=== PATIENT | female | born 1990 | race Caucasian/White ===

== ENCOUNTER 2019-01-23 02:17 | Inpatient (IN) | payer OTHER ==
[~2019-01-23] VITALS: Ht 152.4 cm; Wt 55.1 kg
[~2019-01-23 02:17] MED LIST: NORE-40 PO
--- NOTE | 2019-01-23 02:35 | NUR ---
roberto carlos. report from [facility]. transferred from [facility]. pt c/o right sided abd/flank pain since Mon. pt has hx of kidney stone and pt states stone passed on last Sat. pt had n/v before medications. pt medicated(normal saline/zofran/rocephin/toradol/morphine) at [facility] [employer]. pt denies n/v/d at this time. pt's aox4. resps even and unlabored. bp/spo2 monitors in place. call light within reach. awaiting [facility] assessment at this time.
[2019-01-23] MEDS ORDERED: LEVE500T53 PO (02:44)
[2019-01-23] MEDS ORDERED: IBUP-1223 PO (02:49)
--- NOTE | 2019-01-23 03:11 | NUR ---
report given to kerry bassett. all questions answered.
[2019-01-23] MEDS ORDERED: IBUPROFEN 800 MG TABLET ONE (04:05)
--- NOTE | 2019-01-23 04:08 | NUR ---
pt in [facility] now.
--- NOTE | 2019-01-23 04:08 | NUR ---
pt has fever (101.3) at this time. [facility] notified. pt medicated per [facility] for fever. pt tolerated well. pt's aox4. resps even and unlabored.
--- NOTE | 2019-01-23 04:25 | NUR ---
pt back to room from [facility] now.
[2019-01-23] MEDS ORDERED: IBUPROFEN 800 MG TABLET PO ONE (04:30)
--- NOTE | 2019-01-23 05:02 | NUR ---
PT PROVIDED SOME APPLE JUICE AT THIS TIME. PT RESTING IN [facility]. RESPS EVEN AND UNLABORED. PT DENIES ANY NEEDS/CONCERNS AT THIS TIME.
--- NOTE | 2019-01-23 05:45 | NUR ---
REPORT GIVEN TO VIN HAWK. ALL QUESTIONS ANSWERED.
[2019-01-23] MEDS: morphine SULFATE 10 MG/ML, 1ML IVPush PRN ×5 (06:25→20:01)
[2019-01-23] MEDS: SODIUM CHLORIDE 0.9% 1,000 ML IV SCH ×2 (06:40→11:33)
[2019-01-23] MEDS ORDERED: LEVETIRACETAM 500 MG in SODIUM CHLORIDE 0.9% 100 ML IV SCH (09:00)
[2019-01-23 09:58] VITALS: BP 104/73
[2019-01-23 11:57] LABS: MEAN CORPUSCULAR HEMOGLOBIN 29.6 pg (27.0-34.8); MEAN CORPUSCULAR HGB CONC 33.5 g/dL (32.4-35.8); MEAN CORPUSCULAR VOLUME 88.4 fL (80-100); MEAN PLATELET VOLUME 7.7 fL (7.4-10.4); PLATELET COUNT 282 x10^3/uL (130-400); RED BLOOD COUNT 3.93 x10^6/uL (3.82-5.3); RED CELL DISTRIBUTION WIDTH 16.3 % (9.6-15.2)
[2019-01-23 12:09] LABS: ANION GAP 6 mmol/L (5-15); CALCIUM 8.2 mg/dL (8.5-10.1); CHLORIDE 102 mmol/L (98-107); CREATININE 1.17 mg/dL (0.55-1.02)
[2019-01-23 12:46] VITALS: BP 133/76
[2019-01-23 12:52] LABS: MICROSCOPIC AUTO
[2019-01-23 12:54] LABS: CULTURE INDICATED? YES
[2019-01-23 12:57] LABS: BASOPHILS # (AUTO) 0.02 x10^3/uL (0-0.1); BASOPHILS % (AUTO) 0 % (0-1); EOSINOPHILS # (AUTO) 0.08 x10^3/uL (0-0.4); EOSINOPHILS % (AUTO) 1 % (1-7); LYMPHOCYTES # (AUTO) 1.11 x10^3/uL (1-3.4); LYMPHOCYTES % (AUTO) 8 % (22-44); MD SCAN; MONOCYTES # (AUTO) 1.14 x10^3/uL (0.2-0.8); MONOCYTES % (AUTO) 9 % (2-9); NEUTROPHILS # (AUTO) 11.04 x10^3/uL (1.8-6.8); NEUTROPHILS % (AUTO) 82 % (42-75)
[2019-01-23] MEDS ORDERED: PHARMACY MAY ADJ FOR RENAL FX MC PRN (14:00)
[2019-01-23] MEDS ORDERED: ONDANSETRON 2MG/ML, 2ML IVPush PRN (14:00)
[2019-01-23] MEDS ORDERED: BISACODYL 10 MG SUPP PR PRN (14:00)
[2019-01-23] MEDS ORDERED: hydrALAzine 20 MG/ML, 1ML IVPush PRN (14:00)
[2019-01-23] MEDS ORDERED: POTASSIUM CHLORIDE 20 MEQ TAB.ER.PRT PO ONE (14:00)
[2019-01-23] MEDS ORDERED: POLYETHYLENE GLYCOL 17 GM PACKET PO PRN (14:00)
[2019-01-23] MEDS ORDERED: ONDANSETRON ODT 4 MG PO PRN (14:00)
[2019-01-23] MEDS ORDERED: MORPHINE SULFATE 4 MG/ML, 1ML ONE (15:05)
[2019-01-23] MEDS: NS + 20MEQ KCL 1,000 ML IV SCH ×2 (15:45→23:45)
[2019-01-23 15:52] VITALS: BP 102/67
[2019-01-23 19:18] VITALS: BP 94/62
[2019-01-23] MEDS: DOCUSATE 100 MG CAPSULE PO SCH (20:01)
[2019-01-23] MEDS: CEFTRIAXONE PMX 1GM/50ML 50 ML IV SCH (21:04)
[2019-01-24 00:17] VITALS: BP 104/74
[2019-01-24] MEDS: morphine SULFATE 10 MG/ML, 1ML IVPush PRN ×7 (00:58→22:27)
[2019-01-24 05:10] LABS: BASOPHILS # (AUTO) 0.02 x10^3/uL (0-0.1); BASOPHILS % (AUTO) 0 % (0-1); EOSINOPHILS # (AUTO) 0.09 x10^3/uL (0-0.4); EOSINOPHILS % (AUTO) 1 % (1-7); LYMPHOCYTES # (AUTO) 1.79 x10^3/uL (1-3.4); LYMPHOCYTES % (AUTO) 15 % (22-44); MD NO; MEAN CORPUSCULAR HEMOGLOBIN 30.6 pg (27.0-34.8); MEAN CORPUSCULAR HGB CONC 34.4 g/dL (32.4-35.8); MEAN CORPUSCULAR VOLUME 88.8 fL (80-100); MEAN PLATELET VOLUME 7.5 fL (7.4-10.4); MONOCYTES # (AUTO) 1.42 x10^3/uL (0.2-0.8); MONOCYTES % (AUTO) 12 % (2-9); NEUTROPHILS # (AUTO) 8.61 x10^3/uL (1.8-6.8); NEUTROPHILS % (AUTO) 72 % (42-75); PLATELET COUNT 301 x10^3/uL (130-400); RED BLOOD COUNT 3.36 x10^6/uL (3.82-5.3); RED CELL DISTRIBUTION WIDTH 16.3 % (9.6-15.2)
[2019-01-24 05:17] LABS: ALBUMIN 1.6 g/dL (3.4-5.0); ANION GAP 4 mmol/L (5-15); CALCIUM 7.5 mg/dL (8.5-10.1); CHLORIDE 105 mmol/L (98-107)
[2019-01-24 05:22] LABS: ALANINE AMINOTRANSFERASE 95 U/L (12-78); ALKALINE PHOSPHATASE 154 U/L (45-117); BILIRUBIN,TOTAL 0.5 mg/dL (0.2-1.0); CREATININE 0.93 mg/dL (0.55-1.02); TOTAL PROTEIN 5.2 g/dL (6.4-8.2)
[2019-01-24] MEDS ORDERED: SODIUM PHOSPHATE 20 MMOL in SODIUM CHLORIDE 0.9% 500 ML IV ONE (07:30)
[2019-01-24] MEDS: LEVETIRACETAM 500 MG TABLET PO SCH (07:58)
[2019-01-24] MEDS: DOCUSATE 100 MG CAPSULE PO SCH ×2 (07:58→21:00)
[2019-01-24 08:50] VITALS: BP 109/76
[2019-01-24] MEDS: CEFTRIAXONE PMX 1GM/50ML 50 ML IV SCH ×2 (09:08→21:53)
[2019-01-24] MEDS: NS + 20MEQ KCL 1,000 ML IV SCH ×2 (10:24→21:53)
[2019-01-24 13:00] VITALS: BP 105/72
[2019-01-24 18:47] VITALS: BP 109/76
[2019-01-25 01:03] VITALS: BP 109/75
[2019-01-25] MEDS: morphine SULFATE 10 MG/ML, 1ML IVPush PRN ×3 (02:27→08:45)
[2019-01-25] MEDS: METHOCARBAMOL 500 MG TABLET PO PRN ×2 (04:24→17:49)
[2019-01-25] MEDS: NS + 20MEQ KCL 1,000 ML IV SCH ×3 (05:15→21:25)
[2019-01-25 05:18] LABS: MEAN CORPUSCULAR HEMOGLOBIN 30.8 pg (27.0-34.8); MEAN CORPUSCULAR HGB CONC 34.5 g/dL (32.4-35.8); MEAN CORPUSCULAR VOLUME 89.3 fL (80-100); MEAN PLATELET VOLUME 7.7 fL (7.4-10.4); PLATELET COUNT 409 x10^3/uL (130-400); RED BLOOD COUNT 3.37 x10^6/uL (3.82-5.3); RED CELL DISTRIBUTION WIDTH 16.6 % (9.6-15.2)
[2019-01-25 05:28] LABS: CHLORIDE 104 mmol/L (98-107)
[2019-01-25 05:34] LABS: ALANINE AMINOTRANSFERASE 77 U/L (12-78); ALBUMIN 1.8 g/dL (3.4-5.0); ALKALINE PHOSPHATASE 148 U/L (45-117); ANION GAP 5 mmol/L (5-15); BILIRUBIN,TOTAL 0.2 mg/dL (0.2-1.0); CALCIUM 8.2 mg/dL (8.5-10.1); CREATININE 0.79 mg/dL (0.55-1.02); TOTAL PROTEIN 5.9 g/dL (6.4-8.2)
[2019-01-25 06:26] LABS: BASOPHILS # (AUTO) 0.06 x10^3/uL (0-0.1); BASOPHILS % (AUTO) 0 % (0-1); EOSINOPHILS # (AUTO) 0.08 x10^3/uL (0-0.4); EOSINOPHILS % (AUTO) 1 % (1-7); LYMPHOCYTES # (AUTO) 2.52 x10^3/uL (1-3.4); LYMPHOCYTES % (AUTO) 17 % (22-44); MD SCAN; MONOCYTES # (AUTO) 1.29 x10^3/uL (0.2-0.8); MONOCYTES % (AUTO) 9 % (2-9); NEUTROPHILS # (AUTO) 10.72 x10^3/uL (1.8-6.8); NEUTROPHILS % (AUTO) 73 % (42-75)
[2019-01-25 07:04] VITALS: BP 102/69
[2019-01-25] MEDS: CEFTRIAXONE PMX 1GM/50ML 50 ML IV SCH ×2 (08:46→21:24)
[2019-01-25] MEDS: LEVETIRACETAM 500 MG TABLET PO SCH (08:46)
[2019-01-25] MEDS: DOCUSATE 100 MG CAPSULE PO SCH ×2 (08:46→21:00)
[2019-01-25] MEDS ORDERED: GUAIFENESIN/DM 200-20MG, 10ML UDC PO PRN (12:00)
[2019-01-25] MEDS: PHENAZOPYRIDINE 200 MG TABLET PO PRN ×2 (12:47→21:24)
[2019-01-25] MEDS: OXYcodone IR 5MG TABLET PO PRN ×3 (12:55→21:25)
[2019-01-25 14:33] VITALS: BP 101/70
[2019-01-25 18:28] VITALS: BP 98/71
[2019-01-26 00:37] VITALS: BP 111/78
[2019-01-26] MEDS: OXYcodone IR 5MG TABLET PO PRN ×4 (01:48→19:02)
[2019-01-26] MEDS: METHOCARBAMOL 500 MG TABLET PO PRN ×2 (04:18→17:37)
[2019-01-26 04:57] LABS: MEAN CORPUSCULAR HEMOGLOBIN 30.5 pg (27.0-34.8); MEAN CORPUSCULAR HGB CONC 34.2 g/dL (32.4-35.8); MEAN CORPUSCULAR VOLUME 89.3 fL (80-100); MEAN PLATELET VOLUME 7.6 fL (7.4-10.4); PLATELET COUNT 533 x10^3/uL (130-400); RED BLOOD COUNT 3.37 x10^6/uL (3.82-5.3); RED CELL DISTRIBUTION WIDTH 16.4 % (9.6-15.2)
[2019-01-26 05:09] LABS: CHLORIDE 105 mmol/L (98-107)
[2019-01-26 05:21] LABS: ALANINE AMINOTRANSFERASE 60 U/L (12-78); ALBUMIN 1.9 g/dL (3.4-5.0); ALKALINE PHOSPHATASE 123 U/L (45-117); ANION GAP 5 mmol/L (5-15); BILIRUBIN,TOTAL 0.2 mg/dL (0.2-1.0); CALCIUM 8.3 mg/dL (8.5-10.1); CREATININE 0.88 mg/dL (0.55-1.02); TOTAL PROTEIN 6.1 g/dL (6.4-8.2)
[2019-01-26 05:32] LABS: MD YES
[2019-01-26 05:33] LABS: BAND#(MANUAL) 0.76 x10^3/uL; BANDS%(MANUAL) 5 % (0-7); EOS#(MANUAL) 0.15 x10^3/uL (0.0-0.4); EOS% (MANUAL) 1 % (1-7); LYMPH#(MANUAL) 4.38 x10^3/uL (1-3.4); LYMPHS% (MANUAL) 29 % (22-44); METAMYELOCYTES# (MANUAL) 0.15 x10^3/uL (0-0); METAMYELOCYTES% (MANUAL) 1 % (0-1); MONOS#(MANUAL) 1.06 x10^3/uL (0.3-2.7); MONOS% (MANUAL) 7 % (2-9); MYELOCYTES# (MANUAL) 0.15 x10^3/uL (0-0); MYELOCYTES% (MANUAL) 1 % (0-0); SEG#(MANUAL) 8.46 x10^3/uL (1.8-6.8); SEGS% (MANUAL) 56 % (42-75)
[2019-01-26 05:35] LABS: <PLATELET ESTIMATE> INCREASED; <PLT MORPHOLOGY> NORMAL PLT MORPH; <RBC MORPHOLOGY> NORMAL
[2019-01-26] MEDS: NS + 20MEQ KCL 1,000 ML IV SCH (06:15)
[2019-01-26] MEDS: PHENAZOPYRIDINE 200 MG TABLET PO PRN ×2 (06:17→17:37)
[2019-01-26 06:30] VITALS: BP 113/78
[2019-01-26] MEDS: CEFTRIAXONE PMX 1GM/50ML 50 ML IV SCH ×2 (08:21→20:24)
[2019-01-26] MEDS: DOCUSATE 100 MG CAPSULE PO SCH ×2 (08:22→20:24)
[2019-01-26] MEDS: LEVETIRACETAM 500 MG TABLET PO SCH (08:22)
[2019-01-26 13:43] LABS: MICROSCOPIC AUTO
[2019-01-26 13:45] LABS: CULTURE INDICATED? YES
[2019-01-26 13:53] LABS: AMPHETAMINE SCREEN, URINE Negative (Negative); BARBITURATE SCREEN, URINE Negative (Negative); BENZODIAZEPINE SCREEN, URINE Negative (Negative); CANNABINOID SCREEN, URINE Negative (Negative); COCAINE SCREEN, URINE Negative (Negative); METHADONE SCREEN, URINE Positive (Negative); OPIATE SCREEN, URINE Positive (Negative)
[2019-01-26 14:09] VITALS: BP 100/63
[2019-01-26 14:26] LABS: HCT (SEDRATE) 31.3 % (34.6-47.8)
[2019-01-26 18:34] VITALS: BP 100/68
[2019-01-27 00:59] VITALS: BP 95/67
[2019-01-27] MEDS: METHOCARBAMOL 500 MG TABLET PO PRN ×2 (01:32→16:08)
[2019-01-27] MEDS: OXYcodone IR 5MG TABLET PO PRN ×4 (01:32→21:36)
[2019-01-27 06:17] LABS: MEAN CORPUSCULAR HEMOGLOBIN 30.6 pg (27.0-34.8); MEAN CORPUSCULAR HGB CONC 34.1 g/dL (32.4-35.8); MEAN CORPUSCULAR VOLUME 89.9 fL (80-100); MEAN PLATELET VOLUME 7.6 fL (7.4-10.4); PLATELET COUNT 852 x10^3/uL (130-400); RED BLOOD COUNT 3.85 x10^6/uL (3.82-5.3)
[2019-01-27 06:27] LABS: ALBUMIN 2.3 g/dL (3.4-5.0); ANION GAP 6 mmol/L (5-15); CALCIUM 8.9 mg/dL (8.5-10.1); CHLORIDE 99 mmol/L (98-107)
[2019-01-27 06:31] LABS: ALANINE AMINOTRANSFERASE 59 U/L (12-78); ALKALINE PHOSPHATASE 123 U/L (45-117); BILIRUBIN,TOTAL 0.3 mg/dL (0.2-1.0); CREATININE 0.97 mg/dL (0.55-1.02); TOTAL PROTEIN 7.1 g/dL (6.4-8.2)
[2019-01-27 06:38] LABS: MD YES
[2019-01-27 06:41] LABS: <PLATELET ESTIMATE> INCREASED; <PLT MORPHOLOGY> NORMAL PLT MORPH; <RBC MORPHOLOGY> NORMAL; BAND#(MANUAL) 1.62 x10^3/uL; BANDS%(MANUAL) 8 % (0-7); EOS% (MANUAL) 1 % (1-7); LYMPH#(MANUAL) 5.25 x10^3/uL (1-3.4); LYMPHS% (MANUAL) 26 % (22-44); METAMYELOCYTES% (MANUAL) 2 % (0-1); MONOS#(MANUAL) 1.01 x10^3/uL (0.3-2.7); MONOS% (MANUAL) 5 % (2-9); MYELOCYTES% (MANUAL) 1 % (0-0); SEG#(MANUAL) 11.51 x10^3/uL (1.8-6.8); SEGS% (MANUAL) 57 % (42-75); TOXIC GRAN 1+
[2019-01-27 07:33] VITALS: BP 90/60
[2019-01-27] MEDS: DOCUSATE 100 MG CAPSULE PO SCH ×2 (09:00→19:26)
[2019-01-27] MEDS: MEROPENEM 1 GM in SODIUM CHLORIDE 0.9% 100 ML IV SCH ×2 (09:10→17:26)
[2019-01-27] MEDS: ENOXAPARIN 40 MG/0.4 ML SQ SCH (09:11)
[2019-01-27] MEDS: LEVETIRACETAM 500 MG TABLET PO SCH (09:11)
[2019-01-27] MEDS: PHENAZOPYRIDINE 200 MG TABLET PO PRN ×2 (09:27→19:26)
[2019-01-27 12:23] VITALS: BP 93/59
[2019-01-27 19:24] VITALS: BP 87/59
[2019-01-28 01:05] VITALS: BP 87/58
[2019-01-28] MEDS: MEROPENEM 1 GM in SODIUM CHLORIDE 0.9% 100 ML IV SCH ×3 (01:07→17:27)
[2019-01-28] MEDS: PHENAZOPYRIDINE 200 MG TABLET PO PRN ×2 (03:49→10:07)
[2019-01-28] MEDS: OXYcodone IR 5MG TABLET PO PRN ×3 (03:49→17:27)
[2019-01-28 04:19] LABS: MEAN CORPUSCULAR HEMOGLOBIN 30.3 pg (27.0-34.8); MEAN CORPUSCULAR HGB CONC 33.6 g/dL (32.4-35.8); MEAN CORPUSCULAR VOLUME 90.1 fL (80-100); MEAN PLATELET VOLUME 7.1 fL (7.4-10.4); RED BLOOD COUNT 3.68 x10^6/uL (3.82-5.3); RED CELL DISTRIBUTION WIDTH 15.7 % (9.6-15.2)
[2019-01-28 04:24] LABS: PLATELET COUNT 1058 x10^3/uL (130-400)
[2019-01-28 04:30] LABS: ALANINE AMINOTRANSFERASE 57 U/L (12-78); ALBUMIN 2.4 g/dL (3.4-5.0); ANION GAP 6 mmol/L (5-15); CALCIUM 8.8 mg/dL (8.5-10.1); CHLORIDE 100 mmol/L (98-107)
[2019-01-28 04:33] LABS: ALKALINE PHOSPHATASE 120 U/L (45-117); BILIRUBIN,TOTAL 0.3 mg/dL (0.2-1.0); CREATININE 0.84 mg/dL (0.55-1.02)
[2019-01-28 04:56] LABS: MD YES
[2019-01-28 04:59] LABS: BAND#(MANUAL) 0.13 x10^3/uL; BANDS%(MANUAL) 1 % (0-7); EOS#(MANUAL) 0.27 x10^3/uL (0.0-0.4); EOS% (MANUAL) 2 % (1-7); LYMPH#(MANUAL) 3.06 x10^3/uL (1-3.4); LYMPHS% (MANUAL) 23 % (22-44); MONOS#(MANUAL) 0.67 x10^3/uL (0.3-2.7); MONOS% (MANUAL) 5 % (2-9); MYELOCYTES% (MANUAL) 3 % (0-0); SEG#(MANUAL) 8.78 x10^3/uL (1.8-6.8); SEGS% (MANUAL) 66 % (42-75)
[2019-01-28 05:00] LABS: ANISOCYTOSIS 1+; TOXIC GRAN 1+
[2019-01-28 05:01] LABS: <PLATELET ESTIMATE> INCREASED; <PLT MORPHOLOGY> NORMAL PLT MORPH
[2019-01-28 07:47] VITALS: BP 92/60
[2019-01-28] MEDS: ASPIRIN 325 MG TABLET EC PO SCH ×2 (09:00→13:13)
[2019-01-28] MEDS: DOCUSATE 100 MG CAPSULE PO SCH ×2 (09:00→21:00)
[2019-01-28] MEDS: LEVETIRACETAM 500 MG TABLET PO SCH (09:32)
[2019-01-28] MEDS: ENOXAPARIN 40 MG/0.4 ML SQ SCH (09:33)
[2019-01-28] MEDS: SODIUM CHLORIDE 0.9% 1,000 ML IV SCH ×2 (09:33→17:27)
[2019-01-28 13:20] VITALS: BP 92/59
[2019-01-28 20:20] VITALS: BP 90/58
[2019-01-29] MEDS: OXYcodone IR 5MG TABLET PO PRN ×3 (00:08→16:52)
[2019-01-29] MEDS: PHENAZOPYRIDINE 200 MG TABLET PO PRN ×3 (00:08→16:52)
[2019-01-29] MEDS: SODIUM CHLORIDE 0.9% 1,000 ML IV SCH (00:08)
[2019-01-29] MEDS: MEROPENEM 1 GM in SODIUM CHLORIDE 0.9% 100 ML IV SCH ×3 (00:09→16:58)
[2019-01-29 01:25] VITALS: BP 90/65
[2019-01-29 04:45] LABS: ALANINE AMINOTRANSFERASE 49 U/L (12-78); ALBUMIN 2.1 g/dL (3.4-5.0); ANION GAP 5 mmol/L (5-15); BASOPHILS # (AUTO) 0.04 x10^3/uL (0-0.1); BASOPHILS % (AUTO) 0 % (0-1); CALCIUM 8.1 mg/dL (8.5-10.1); CHLORIDE 108 mmol/L (98-107); CREATININE 0.83 mg/dL (0.55-1.02); EOSINOPHILS # (AUTO) 0.44 x10^3/uL (0-0.4); EOSINOPHILS % (AUTO) 3 % (1-7); LYMPHOCYTES # (AUTO) 2.28 x10^3/uL (1-3.4); LYMPHOCYTES % (AUTO) 18 % (22-44); MD NO; MEAN CORPUSCULAR HEMOGLOBIN 30.4 pg (27.0-34.8); MEAN CORPUSCULAR HGB CONC 33.7 g/dL (32.4-35.8); MEAN CORPUSCULAR VOLUME 90.3 fL (80-100); MEAN PLATELET VOLUME 7.1 fL (7.4-10.4); MONOCYTES # (AUTO) 0.63 x10^3/uL (0.2-0.8); MONOCYTES % (AUTO) 5 % (2-9); NEUTROPHILS % (AUTO) 74 % (42-75); PLATELET COUNT 968 x10^3/uL (130-400); RED BLOOD COUNT 3.02 x10^6/uL (3.82-5.3); RED CELL DISTRIBUTION WIDTH 15.6 % (9.6-15.2)
[2019-01-29 04:47] LABS: ALKALINE PHOSPHATASE 101 U/L (45-117); BILIRUBIN,TOTAL 0.1 mg/dL (0.2-1.0)
[2019-01-29 08:00] VITALS: BP 92/56
[2019-01-29] MEDS: LEVETIRACETAM 500 MG TABLET PO SCH (08:41)
[2019-01-29] MEDS: DOCUSATE 100 MG CAPSULE PO SCH ×2 (08:41→21:00)
[2019-01-29] MEDS: ENOXAPARIN 40 MG/0.4 ML SQ SCH (08:41)
[2019-01-29 14:18] VITALS: BP 103/67
[2019-01-29 20:36] VITALS: BP 90/60
[2019-01-30] MEDS: OXYcodone IR 5MG TABLET PO PRN ×4 (00:28→21:25)
[2019-01-30] MEDS: PHENAZOPYRIDINE 200 MG TABLET PO PRN ×2 (00:28→09:11)
[2019-01-30] MEDS: MEROPENEM 1 GM in SODIUM CHLORIDE 0.9% 100 ML IV SCH ×4 (00:28→20:39)
[2019-01-30 01:11] VITALS: BP 97/64
[2019-01-30 03:41] LABS: MEAN CORPUSCULAR HEMOGLOBIN 30.1 pg (27.0-34.8); MEAN CORPUSCULAR HGB CONC 33.6 g/dL (32.4-35.8); MEAN CORPUSCULAR VOLUME 89.7 fL (80-100); MEAN PLATELET VOLUME 7.2 fL (7.4-10.4); RED BLOOD COUNT 3.27 x10^6/uL (3.82-5.3); RED CELL DISTRIBUTION WIDTH 15.7 % (9.6-15.2)
[2019-01-30 03:50] LABS: PLATELET COUNT 1194 x10^3/uL (130-400)
[2019-01-30 04:07] LABS: BASOPHILS # (AUTO) 0.04 x10^3/uL (0-0.1); BASOPHILS % (AUTO) 0 % (0-1); EOSINOPHILS # (AUTO) 0.24 x10^3/uL (0-0.4); EOSINOPHILS % (AUTO) 2 % (1-7); LYMPHOCYTES # (AUTO) 2.36 x10^3/uL (1-3.4); LYMPHOCYTES % (AUTO) 20 % (22-44); MD SCAN; MONOCYTES # (AUTO) 0.45 x10^3/uL (0.2-0.8); MONOCYTES % (AUTO) 4 % (2-9); NEUTROPHILS # (AUTO) 8.89 x10^3/uL (1.8-6.8); NEUTROPHILS % (AUTO) 74 % (42-75)
[2019-01-30 07:20] VITALS: BP 90/50
[2019-01-30] MEDS: ASPIRIN 325 MG TABLET EC PO SCH (08:59)
[2019-01-30] MEDS: LEVETIRACETAM 500 MG TABLET PO SCH (08:59)
[2019-01-30] MEDS: DOCUSATE 100 MG CAPSULE PO SCH ×2 (08:59→20:39)
[2019-01-30] MEDS: ENOXAPARIN 40 MG/0.4 ML SQ SCH (09:00)
[2019-01-30] MEDS: SODIUM CHLORIDE 0.9% 1,000 ML IV SCH (09:12)
[2019-01-30 13:30] VITALS: BP 94/63
[2019-01-30 19:40] VITALS: BP 92/61
[2019-01-31 02:56] VITALS: BP_SYST 85; BP_SYST 89; BP_DIAS 53; BP_DIAS 59
[2019-01-31] MEDS: MEROPENEM 1 GM in SODIUM CHLORIDE 0.9% 100 ML IV SCH (04:09)
[2019-01-31] MEDS: OXYcodone IR 5MG TABLET PO PRN ×4 (04:17→23:54)
[2019-01-31] MEDS: PHENAZOPYRIDINE 200 MG TABLET PO PRN ×3 (04:17→23:54)
[2019-01-31 04:32] VITALS: BP 95/60
[2019-01-31 04:43] LABS: MEAN CORPUSCULAR HEMOGLOBIN 29.5 pg (27.0-34.8); MEAN CORPUSCULAR HGB CONC 32.7 g/dL (32.4-35.8); MEAN CORPUSCULAR VOLUME 90.1 fL (80-100); MEAN PLATELET VOLUME 7.6 fL (7.4-10.4); RED BLOOD COUNT 2.98 x10^6/uL (3.82-5.3); RED CELL DISTRIBUTION WIDTH 15.3 % (9.6-15.2)
[2019-01-31 04:54] LABS: PLATELET COUNT 1074 x10^3/uL (130-400)
[2019-01-31 06:16] LABS: BASOPHILS # (AUTO) 0.03 x10^3/uL (0-0.1); BASOPHILS % (AUTO) 0 % (0-1); EOSINOPHILS # (AUTO) 0.11 x10^3/uL (0-0.4); EOSINOPHILS % (AUTO) 1 % (1-7); LYMPHOCYTES # (AUTO) 2.01 x10^3/uL (1-3.4); LYMPHOCYTES % (AUTO) 19 % (22-44); MD SCAN; MONOCYTES # (AUTO) 0.53 x10^3/uL (0.2-0.8); MONOCYTES % (AUTO) 5 % (2-9); NEUTROPHILS # (AUTO) 7.97 x10^3/uL (1.8-6.8); NEUTROPHILS % (AUTO) 75 % (42-75)
[2019-01-31 07:25] VITALS: BP 84/55
[2019-01-31 08:42] LABS: FOLATE LEVEL 8.2 ng/mL (3.1-17.5)
[2019-01-31] MEDS: DOCUSATE 100 MG CAPSULE PO SCH ×2 (09:26→21:32)
[2019-01-31] MEDS: ASPIRIN 325 MG TABLET EC PO SCH (09:30)
[2019-01-31] MEDS: ENOXAPARIN 40 MG/0.4 ML SQ SCH (09:30)
[2019-01-31] MEDS: LEVETIRACETAM 500 MG TABLET PO SCH (09:30)
[2019-01-31] MEDS: CEFDINIR 300 MG CAPSULE PO SCH ×2 (09:30→21:31)
[2019-01-31] MEDS: SODIUM CHLORIDE 0.9% 1,000 ML IV SCH (10:18)
[2019-01-31 12:30] VITALS: BP 88/60
[2019-01-31] MEDS: LACTOBACILLUS 1GM/ PACKET PO SCH ×2 (16:03→21:31)
[2019-01-31 18:39] VITALS: BP 94/61
[2019-02-01 01:18] VITALS: BP 101/66
[2019-02-01 04:17] LABS: MEAN CORPUSCULAR HEMOGLOBIN 29.9 pg (27.0-34.8); MEAN CORPUSCULAR HGB CONC 33.2 g/dL (32.4-35.8); MEAN CORPUSCULAR VOLUME 90.1 fL (80-100); MEAN PLATELET VOLUME 7.2 fL (7.4-10.4); RED BLOOD COUNT 3.12 x10^6/uL (3.82-5.3); RED CELL DISTRIBUTION WIDTH 15.3 % (9.6-15.2)
[2019-02-01 06:03] LABS: BASOPHILS # (AUTO) 0.04 x10^3/uL (0-0.1); BASOPHILS % (AUTO) 1 % (0-1); EOSINOPHILS # (AUTO) 0.22 x10^3/uL (0-0.4); EOSINOPHILS % (AUTO) 2 % (1-7); LYMPHOCYTES # (AUTO) 2.91 x10^3/uL (1-3.4); LYMPHOCYTES % (AUTO) 32 % (22-44); MD SCAN; MONOCYTES # (AUTO) 0.63 x10^3/uL (0.2-0.8); MONOCYTES % (AUTO) 7 % (2-9); NEUTROPHILS # (AUTO) 5.41 x10^3/uL (1.8-6.8); NEUTROPHILS % (AUTO) 59 % (42-75)
[2019-02-01 06:04] LABS: PLATELET COUNT 1135 x10^3/uL (130-400)
[2019-02-01 07:20] VITALS: BP 80/50
[2019-02-01] MEDS: DOCUSATE 100 MG CAPSULE PO SCH (09:00)
[2019-02-01] MEDS: LACTOBACILLUS 1GM/ PACKET PO SCH (09:01)
[2019-02-01] MEDS: CEFDINIR 300 MG CAPSULE PO SCH (09:01)
[2019-02-01] MEDS: LEVETIRACETAM 500 MG TABLET PO SCH (09:01)
[2019-02-01] MEDS: ASPIRIN 325 MG TABLET EC PO SCH (09:01)
[2019-02-01] MEDS: ENOXAPARIN 40 MG/0.4 ML SQ SCH (09:02)
[2019-02-01] MEDS: OXYcodone IR 5MG TABLET PO PRN (09:15)
[2019-02-01] MEDS: PHENAZOPYRIDINE 200 MG TABLET PO PRN (09:15)
[2019-02-01 10:32] VITALS: BP 97/64
[2019-02-01] MEDS ORDERED: PHEN-583 PO (10:59)
[2019-02-01] MEDS ORDERED: CEFD300C37 PO (10:59)
[2019-02-01] MEDS ORDERED: ACID1GRA3 PO (10:59)
[2019-02-01] MEDS ORDERED: ASPI-650 PO (10:59)
[2019-02-01] MEDS ORDERED: LIDO700A20 TD (12:09)
[2019-02-01 13:15] VITALS: BP 97/59
== END 2019-02-01 14:01 | disposition home or self-care (01) | DRG 871 ==
LOC: ED 02:45 → EDIP 02:54 → 4WST 06:21 → 3NW 01-27 12:16
PROVIDERS: ADMIT Internal Medicine; ATTEND Internal Medicine
DX: A41.9 Sepsis, unspecified organism (principal); E43 Unspecified severe protein-calorie malnutrition; N17.0 Acute kidney failure with tubular necrosis; N13.6 Pyonephrosis; E83.39 Other disorders of phosphorus metabolism; E87.6 Hypokalemia; M41.9 Scoliosis, unspecified; G40.409 Other generalized epilepsy and epileptic syndromes, not intractable, without status epilepticus; K76.0 Fatty (change of) liver, not elsewhere classified; Z79.899 Other long term (current) drug therapy; Z87.410 Personal history of cervical dysplasia; Z87.442 Personal history of urinary calculi; Z88.0 Allergy status to penicillin; Z88.6 Allergy status to analgesic agent; Z68.23 Body mass index [BMI] 23.0-23.9, adult
CPT/HCPCS: 36415; 71045; 74018; 74176; 76700; 80048; 80053; 80074; 80307; 81001; 82607; 82728; 82746; 83540; 83550; 83735; 84100; 84443; 84703; 85025; 85651; 86140; 87040; 87086; 93306; G0378; J0696; J1650; J1953; J2185; J3480; J2270; J7030; J7040

== ENCOUNTER 2020-03-28 16:28 | Emergency (ER) | payer OTHER ==
[~2020-03-28] VITALS: Ht 152.4 cm; Wt 53.6 kg
[~2020-03-28 16:28] MED LIST changes: +ACID1GRA3 PO; +ASPI-650 PO; +CEFD300C37 PO; +IBUP-1223 PO; +LEVE500T53 PO; +LIDO700A20 TD; +PHEN-583 PO
--- NOTE | 2020-03-28 17:20 | NUR ---
UA SENT UPDATED ON POC VSS ON [facility]
[2020-03-28 17:31] LABS: MICROSCOPIC NOT IND
[2020-03-28 17:57] LABS: BASOPHILS # (AUTO) 0.06 x10^3/uL (0-0.1); BASOPHILS % (AUTO) 0 % (0-1); EOSINOPHILS # (AUTO) 0.15 x10^3/uL (0-0.4); EOSINOPHILS % (AUTO) 1 % (1-7); LYMPHOCYTES # (AUTO) 2.56 x10^3/uL (1-3.4); LYMPHOCYTES % (AUTO) 18 % (22-44); MD NO; MEAN CORPUSCULAR HEMOGLOBIN 28.9 pg (27.0-34.8); MEAN CORPUSCULAR HGB CONC 33.2 g/dL (32.4-35.8); MEAN CORPUSCULAR VOLUME 87.1 fL (80-100); MEAN PLATELET VOLUME 8.1 fL (7.4-10.4); MONOCYTES # (AUTO) 0.98 x10^3/uL (0.2-0.8); MONOCYTES % (AUTO) 7 % (2-9); NEUTROPHILS # (AUTO) 10.51 x10^3/uL (1.8-6.8); NEUTROPHILS % (AUTO) 74 % (42-75); PLATELET COUNT 416 x10^3/uL (130-400); RED BLOOD COUNT 4.46 x10^6/uL (3.82-5.3); RED CELL DISTRIBUTION WIDTH 13.8 % (9.6-15.2)
[2020-03-28] MEDS ORDERED: SODIUM CHLORIDE 0.9% 1,000ML IVBOLUS ONE (18:00)
[2020-03-28] MEDS ORDERED: SODIUM CHLORIDE FLUSH 10ML SYR IVF ONE (18:00)
[2020-03-28 18:08] LABS: ALANINE AMINOTRANSFERASE 15 U/L (12-78); ALBUMIN 3.4 g/dL (3.4-5.0); ANION GAP 6 mmol/L (5-15); CALCIUM 8.7 mg/dL (8.5-10.1); CHLORIDE 104 mmol/L (98-107); CREATININE 0.88 mg/dL (0.55-1.02)
[2020-03-28 18:25] LABS: ALKALINE PHOSPHATASE 72 U/L (45-117); BILIRUBIN,TOTAL 0.2 mg/dL (0.2-1.0); TOTAL PROTEIN 7.3 g/dL (6.4-8.2)
--- NOTE | 2020-03-28 18:29 | NUR ---
1L NS COMPLETE UP TO RESTROOM-STILL VERY DIZZY-ORTHOS NEGATIVE
--- NOTE | 2020-03-28 18:31 | NUR ---
[facility] CALLED TO EXPEDITE EXAM
--- NOTE | 2020-03-28 18:52 | NUR ---
REPORT GIVEN TO NENA HAWK.
--- NOTE | 2020-03-28 18:54 | NUR ---
PT TO [facility].
--- NOTE | 2020-03-28 19:14 | NUR ---
PT RETURNED FROM [facility]. PT RESTING ON [employer] W/ CALL LIGHT IN REACH. RESP EVEN AND UNLABORED, VIANNEY. AWAITING RESULTS.
[2020-03-28 19:40] VITALS: BP 93/66
== END 2020-03-28 20:08 | disposition home or self-care (01) ==
LOC: ED 18:15
DX: O26.891 Other specified pregnancy related conditions, first trimester (principal); O99.331 Smoking (tobacco) complicating pregnancy, first trimester; R10.84 Generalized abdominal pain; R42 Dizziness and giddiness; F17.200 Nicotine dependence, unspecified, uncomplicated; Z3A.11 11 weeks gestation of pregnancy
CPT/HCPCS: 36415; 76801; 80053; 81003; 84702; 85025; 93005; 96360; 99285; J7030

== ENCOUNTER 2020-04-19 12:09 | Emergency (ER) | payer SELFPAY ==
[~2020-04-19] VITALS: Ht 152.4 cm; Wt 55.4 kg
[2020-04-19 12:32] VITALS: BP 107/45
== END 2020-04-19 13:41 | disposition home or self-care (01) ==
LOC: ED 13:32
DX: O26.892 Other specified pregnancy related conditions, second trimester (principal); Z20.828 Contact with and (suspected) exposure to other viral communicable diseases; J02.8 Acute pharyngitis due to other specified organisms; B97.89 Other viral agents as the cause of diseases classified elsewhere; Z3A.16 16 weeks gestation of pregnancy; Z90.89 Acquired absence of other organs
CPT/HCPCS: 36415; 87081; 87635; 87880; 99283

== ENCOUNTER 2020-08-24 17:01 | Outpatient (CLI) | payer MEDICAID ==
[~2020-08-24] VITALS: Ht 152.4 cm; Wt 68.2 kg
[2020-08-24 17:25] VITALS: BP 129/91
[2020-08-24 17:42] LABS: MICROSCOPIC NOT IND
[2020-08-24 17:44] LABS: BASOPHILS % (AUTO) 0 % (0-1); EOSINOPHILS % (AUTO) 1 % (1-7); LYMPHOCYTES % (AUTO) 18 % (22-44); MEAN CORPUSCULAR HEMOGLOBIN 25.7 pg (27.0-34.8); MEAN CORPUSCULAR HGB CONC 31.9 g/dL (32.4-35.8); MEAN PLATELET VOLUME 8.4 fL (7.4-10.4); MONOCYTES % (AUTO) 7 % (2-9); NEUTROPHILS % (AUTO) 74 % (42-75); PLATELET COUNT 304 x10^3/uL (130-400)
[2020-08-24 17:48] LABS: MD NO
[2020-08-24 17:55] LABS: ALANINE AMINOTRANSFERASE 8 U/L (12-78); ALBUMIN 2.2 g/dL (3.4-5.0); ANION GAP 6 mmol/L (5-15); CALCIUM 8.1 mg/dL (8.5-10.1); CHLORIDE 109 mmol/L (98-107); CREATININE 0.66 mg/dL (0.55-1.02)
[2020-08-24 17:57] LABS: ALKALINE PHOSPHATASE 137 U/L (45-117); BILIRUBIN,TOTAL 0.2 mg/dL (0.2-1.0); TOTAL PROTEIN 6.1 g/dL (6.4-8.2)
[2020-08-24] MEDS ORDERED: LEVE250T28 PO (17:57)
[2020-08-24 18:00] LABS: CREATININE,URINE RANDOM 21.1 mg/dL
[2020-08-24 18:01] LABS: BILIRUBIN, DIRECT < 0.1 mg/dL (0.1-0.2)
[2020-08-24] MEDS ORDERED: CALCIUM CARBONATE 500 MG TAB.CHEW ONE (18:21)
[2020-08-24] MEDS ORDERED: CALCIUM CARBONATE 500 MG TAB.CHEW PO PRN (18:30)
== END 2020-08-24 19:51 | disposition home or self-care (01) ==
LOC: LDOP 17:01
PROVIDERS: ATTEND Obstetrics & Gynecology
DX: O13.3 Gestational [pregnancy-induced] hypertension without significant proteinuria, third trimester (principal); Z3A.31 31 weeks gestation of pregnancy
CPT/HCPCS: 36415; 59025; 80053; 81003; 82248; 82570; 84156; 84550; 85025

== ENCOUNTER 2020-08-30 12:09 | Outpatient (CLI) | payer MEDICAID ==
[~2020-08-30] VITALS: Ht 152.4 cm; Wt 67.3 kg
[~2020-08-30 12:09] MED LIST changes: +LEVE250T28 PO
[2020-08-30 12:32] VITALS: BP 132/93
[2020-08-30 13:39] LABS: AMPHETAMINE SCREEN, URINE Positive (Negative); BARBITURATE SCREEN, URINE Negative (Negative); BENZODIAZEPINE SCREEN, URINE Negative (Negative); CANNABINOID SCREEN, URINE Negative (Negative); COCAINE SCREEN, URINE Negative (Negative); METHADONE SCREEN, URINE Negative (Negative)
[2020-08-30 13:40] LABS: OPIATE SCREEN, URINE Negative (Negative)
[2020-08-30 13:41] LABS: MICROSCOPIC INDICATED
[2020-08-30 14:39] LABS: BASOPHILS % (AUTO) 1 % (0-1); EOSINOPHILS % (AUTO) 1 % (1-7); LYMPHOCYTES % (AUTO) 19 % (22-44); MEAN CORPUSCULAR HEMOGLOBIN 26.2 pg (27.0-34.8); MEAN CORPUSCULAR HGB CONC 32.3 g/dL (32.4-35.8); MEAN PLATELET VOLUME 8.3 fL (7.4-10.4); MONOCYTES % (AUTO) 8 % (2-9); NEUTROPHILS % (AUTO) 71 % (42-75); PLATELET COUNT 313 x10^3/uL (130-400); RED BLOOD COUNT 4.15 x10^6/uL (3.82-5.3); RED CELL DISTRIBUTION WIDTH 14.2 % (9.6-15.2)
[2020-08-30 14:51] LABS: ALANINE AMINOTRANSFERASE 13 U/L (12-78); ALBUMIN 2.3 g/dL (3.4-5.0); ANION GAP 7 mmol/L (5-15); CALCIUM 8.6 mg/dL (8.5-10.1); CHLORIDE 105 mmol/L (98-107); CREATININE 0.69 mg/dL (0.55-1.02)
[2020-08-30 14:52] LABS: BILIRUBIN, DIRECT < 0.1 mg/dL (0.1-0.2)
[2020-08-30 14:53] LABS: ALKALINE PHOSPHATASE 157 U/L (45-117); BILIRUBIN,TOTAL 0.1 mg/dL (0.2-1.0); TOTAL PROTEIN 6.5 g/dL (6.4-8.2)
[2020-08-30 15:07] LABS: MD SCAN
[2020-08-30 15:42] LABS: TOTAL PROTEIN,URINE RANDOM < 5 mg/dL (0-12)
== END 2020-08-30 16:40 | disposition home or self-care (01) ==
LOC: LDOP 12:09
PROVIDERS: ATTEND Obstetrics & Gynecology
DX: Z34.93 Encounter for supervision of normal pregnancy, unspecified, third trimester (principal); Z3A.31 31 weeks gestation of pregnancy
CPT/HCPCS: 36415; 59025; 76819; 80053; 80307; 81001; 82248; 82570; 84156; 84550; 85025; 87086

== ENCOUNTER 2020-09-09 12:43 | Observation (INO) | payer MEDICAID ==
[~2020-09-09] VITALS: Ht 152.4 cm; Wt 72.7 kg
[2020-09-09 13:22] LABS: MICROSCOPIC INDICATED
[2020-09-09 13:26] VITALS: BP 127/78
[2020-09-09 13:30] LABS: AMPHETAMINE SCREEN, URINE Negative (Negative); BARBITURATE SCREEN, URINE Negative (Negative); BENZODIAZEPINE SCREEN, URINE Negative (Negative); CANNABINOID SCREEN, URINE Negative (Negative); COCAINE SCREEN, URINE Negative (Negative); METHADONE SCREEN, URINE Negative (Negative); OPIATE SCREEN, URINE Positive (Negative); PROTEIN/CREATININE RATIO,URINE 200 (0-200); TOTAL PROTEIN,URINE RANDOM 38 mg/dL (0-12)
[2020-09-09 13:33] LABS: BASOPHILS % (AUTO) 1 % (0-1); EOSINOPHILS % (AUTO) 1 % (1-7); LYMPHOCYTES % (AUTO) 18 % (22-44); MEAN CORPUSCULAR HEMOGLOBIN 26.3 pg (27.0-34.8); MEAN CORPUSCULAR HGB CONC 32.6 g/dL (32.4-35.8); MEAN PLATELET VOLUME 8.7 fL (7.4-10.4); MONOCYTES % (AUTO) 9 % (2-9); NEUTROPHILS % (AUTO) 72 % (42-75); PLATELET COUNT 368 x10^3/uL (130-400); RED BLOOD COUNT 4.16 x10^6/uL (3.82-5.3); RED CELL DISTRIBUTION WIDTH 14.1 % (9.6-15.2)
[2020-09-09 13:40] LABS: MD NO
[2020-09-09 13:43] LABS: ALANINE AMINOTRANSFERASE 10 U/L (12-78); ALBUMIN 2.2 g/dL (3.4-5.0); ANION GAP 5 mmol/L (5-15); CALCIUM 8.7 mg/dL (8.5-10.1); CHLORIDE 106 mmol/L (98-107); CREATININE 0.72 mg/dL (0.55-1.02)
[2020-09-09 13:45] LABS: ALKALINE PHOSPHATASE 141 U/L (45-117); BILIRUBIN,TOTAL 0.1 mg/dL (0.2-1.0); TOTAL PROTEIN 6.2 g/dL (6.4-8.2)
[2020-09-09 13:47] LABS: BILIRUBIN, DIRECT < 0.1 mg/dL (0.1-0.2)
[2020-09-09] MEDS ORDERED: PREN1TAB60 PO (17:34)
== END 2020-09-09 17:43 | disposition home or self-care (01) ==
LOC: LDOP 12:43 → LDIP 14:37
PROVIDERS: ADMIT Obstetrics & Gynecology; ATTEND Obstetrics & Gynecology
DX: O14.93 Unspecified pre-eclampsia, third trimester (principal); O99.353 Diseases of the nervous system complicating pregnancy, third trimester; G40.909 Epilepsy, unspecified, not intractable, without status epilepticus; Z3A.33 33 weeks gestation of pregnancy
CPT/HCPCS: 36415; 59025; 80053; 80307; 81001; 82248; 82570; 84156; 84550; 85025; G0378

== ENCOUNTER 2020-09-20 12:09 | Inpatient (IN) | payer MEDICAID ==
[~2020-09-20] VITALS: Ht 152.4 cm; Wt 72.0 kg
[~2020-09-20 12:09] MED LIST changes: +PREN1TAB60 PO
[2020-09-20 12:51] LABS: BASOPHILS % (AUTO) 0 % (0-1); EOSINOPHILS % (AUTO) 1 % (1-7); LYMPHOCYTES % (AUTO) 15 % (22-44); MEAN CORPUSCULAR HEMOGLOBIN 25.8 pg (27.0-34.8); MEAN CORPUSCULAR HGB CONC 32.1 g/dL (32.4-35.8); MEAN PLATELET VOLUME 8.9 fL (7.4-10.4); MONOCYTES % (AUTO) 6 % (2-9); NEUTROPHILS % (AUTO) 78 % (42-75); PLATELET COUNT 324 x10^3/uL (130-400); RED BLOOD COUNT 4.06 x10^6/uL (3.82-5.3); RED CELL DISTRIBUTION WIDTH 15.4 % (9.6-15.2)
[2020-09-20 12:53] LABS: MD SCAN
[2020-09-20 12:55] LABS: MICROSCOPIC NOT IND
[2020-09-20 13:02] LABS: ALANINE AMINOTRANSFERASE 9 U/L (12-78); ALBUMIN 2.3 g/dL (3.4-5.0); ANION GAP 12 mmol/L (5-15); CALCIUM 8.8 mg/dL (8.5-10.1); CHLORIDE 107 mmol/L (98-107); CREATININE 0.79 mg/dL (0.55-1.02)
[2020-09-20 13:05] LABS: ALKALINE PHOSPHATASE 159 U/L (45-117); BILIRUBIN,TOTAL 0.2 mg/dL (0.2-1.0); TOTAL PROTEIN 6.5 g/dL (6.4-8.2)
[2020-09-20 13:06] LABS: BILIRUBIN, DIRECT < 0.1 mg/dL (0.1-0.2)
[2020-09-20 13:21] LABS: AMPHETAMINE SCREEN, URINE Negative (Negative); BARBITURATE SCREEN, URINE Negative (Negative); BENZODIAZEPINE SCREEN, URINE Negative (Negative); CANNABINOID SCREEN, URINE Negative (Negative); COCAINE SCREEN, URINE Negative (Negative); METHADONE SCREEN, URINE Negative (Negative); OPIATE SCREEN, URINE Negative (Negative); TOTAL PROTEIN,URINE RANDOM 19 mg/dL (0-12)
[2020-09-20 13:22] LABS: PROTEIN/CREATININE RATIO,URINE 340 (0-200)
[2020-09-20] MEDS ORDERED: OXYTOCIN 30U/ 0.9% NaCL 500ML 500 ML IV ONE (17:39)
[2020-09-20] MEDS ORDERED: NEWBORN KIT ONE (17:58)
[2020-09-20] MEDS ORDERED: MISOPROSTOL 200 MCG TABLET ONE (17:58)
[2020-09-20] MEDS ORDERED: LIDOCAINE 1%, 20ML ONE (17:58)
[2020-09-20] MEDS ORDERED: MAGNESIUM SULF. PMX 20GM/500ML 500 ML IV ONE (17:58)
[2020-09-20] MEDS ORDERED: OXYTOCIN 30U/ 0.9% NaCL 500ML 500 ML ONE (17:58)
[2020-09-20] MEDS ORDERED: MAGNESIUM SULFATE PMX 4GM/100M 100 ML IVPB ONE ×2 (18:00)
[2020-09-20] MEDS ORDERED: FENTANYL PF 100 MCG/2ML IV PRN (18:00)
[2020-09-20] MEDS ORDERED: OXYTOCIN 30U/ 0.9% NaCL 500ML 500 ML IV PRN (18:00)
[2020-09-20] MEDS ORDERED: SODIUM CITRATE/CITRIC ACID 30 ML UDC PO PRN (18:00)
[2020-09-20] MEDS ORDERED: TERBUTALINE 1 MG/ML, 1ML SQ PRN (18:00)
[2020-09-20] MEDS ORDERED: TERBUTALINE 1 MG/ML, 1ML IVPush PRN (18:00)
[2020-09-20] MEDS ORDERED: MAGNESIUM SULF. PMX 20GM/500ML 500 ML IV SCH ×2 (18:00)
[2020-09-20] MEDS ORDERED: FENTANYL PF 100 MCG/2ML IVPush PRN (18:00)
[2020-09-20] MEDS: VANCOMYCIN PMX 1GM/200ML 200 ML IVPB SCH (18:27)
[2020-09-20 18:30] LABS: BASOPHILS % (AUTO) 0 % (0-1); EOSINOPHILS % (AUTO) 1 % (1-7); LYMPHOCYTES % (AUTO) 16 % (22-44); MEAN CORPUSCULAR HEMOGLOBIN 25.6 pg (27.0-34.8); MEAN CORPUSCULAR HGB CONC 32.2 g/dL (32.4-35.8); MEAN PLATELET VOLUME 9.2 fL (7.4-10.4); MONOCYTES % (AUTO) 8 % (2-9); NEUTROPHILS % (AUTO) 75 % (42-75); PLATELET COUNT 330 x10^3/uL (130-400); RED BLOOD COUNT 4.07 x10^6/uL (3.82-5.3); RED CELL DISTRIBUTION WIDTH 14.9 % (9.6-15.2)
[2020-09-20 18:34] LABS: MD NO
[2020-09-20 18:35] LABS: ALBUMIN 2.2 g/dL (3.4-5.0); ANION GAP 8 mmol/L (5-15); CALCIUM 8.5 mg/dL (8.5-10.1); CHLORIDE 106 mmol/L (98-107)
[2020-09-20 18:39] LABS: ALANINE AMINOTRANSFERASE 10 U/L (12-78); ALKALINE PHOSPHATASE 153 U/L (45-117); BILIRUBIN,TOTAL 0.1 mg/dL (0.2-1.0); CREATININE 0.65 mg/dL (0.55-1.02); TOTAL PROTEIN 6.3 g/dL (6.4-8.2)
[2020-09-20] MEDS ORDERED: LACTATED RINGERS 1,000 ML IV SCH (19:00)
[2020-09-20] MEDS ORDERED: FENTANYL/BUPIV./NS/PF 250 ML EPIDCONT SCH (21:00)
[2020-09-20] MEDS ORDERED: NALOXONE 0.4 MG/ML, 1ML IVPush PRN (21:00)
[2020-09-20] MEDS ORDERED: LACTATED RINGERS 1,000 ML IVBOLUS PRN (21:00)
[2020-09-20] MEDS ORDERED: KETOROLAC 30 MG/1 ML IM SCH (21:00)
[2020-09-20] MEDS ORDERED: KETOROLAC 30 MG/1 ML ONE (21:01)
[2020-09-20] MEDS ORDERED: OXYcodone IR 5MG TABLET ONE (23:46)
[2020-09-20] MEDS: LEVETIRACETAM 500 MG TABLET PO SCH (23:50)
[2020-09-20] MEDS: OXYcodone IR 5MG TABLET PO PRN (23:50)
[2020-09-21] MEDS ORDERED: FENTANYL/BUPIV./NS/PF 250 ML EPIDCONT ONE (00:44)
[2020-09-21] MEDS ORDERED: BUPIVACAINE 0.25% ONE (00:44)
[2020-09-21] MEDS: EPHEDRINE 50 MG/ML, 1ML IVPush PRN ×4 (01:18→02:46)
[2020-09-21] MEDS: LACTATED RINGERS 1,000 ML IV SCH ×3 (02:15→11:02)
[2020-09-21] MEDS: VANCOMYCIN PMX 1GM/200ML 200 ML IVPB SCH (06:28)
[2020-09-21] MEDS: LEVETIRACETAM 500 MG TABLET PO SCH ×3 (10:00→20:36)
[2020-09-21] MEDS ORDERED: OXYcodone/APAP 5/325MG TABLET PO PRN (12:30)
[2020-09-21] MEDS ORDERED: MISOPROSTOL 200 MCG TABLET PR PRN (12:30)
[2020-09-21] MEDS ORDERED: SIMETHICONE 80 MG CHEW TAB PO PRN (12:30)
[2020-09-21] MEDS ORDERED: OXYTOCIN 30U/ 0.9% NaCL 500ML 500 ML IV SCH (12:30)
[2020-09-21] MEDS ORDERED: CARBOPROST TROMETHAMINE 250 MCG/ML, 1ML IM PRN (12:30)
[2020-09-21] MEDS ORDERED: OXYTOCIN 30U/ 0.9% NaCL 500ML 500 ML ONE (12:58)
[2020-09-21] MEDS ORDERED: IBUPROFEN 800 MG TABLET ONE (14:03)
[2020-09-21] MEDS: IBUPROFEN 800 MG TABLET PO PRN (14:10)
[2020-09-21 15:00] VITALS: BP 126/84
[2020-09-21] MEDS: OXYcodone IR 5MG TABLET PO PRN ×2 (15:01→20:04)
[2020-09-21] MEDS: OXYcodone/APAP 5/325MG TABLET PO PRN ×2 (19:59→20:01)
[2020-09-21 20:00] VITALS: BP 123/86
[2020-09-22] VITALS: BP 122/84
[2020-09-22 01:23] LABS: BASOPHILS % (AUTO) 0 % (0-1); EOSINOPHILS % (AUTO) 1 % (1-7); LYMPHOCYTES % (AUTO) 14 % (22-44); MEAN CORPUSCULAR HEMOGLOBIN 26.3 pg (27.0-34.8); MEAN PLATELET VOLUME 9.3 fL (7.4-10.4); MONOCYTES % (AUTO) 9 % (2-9); NEUTROPHILS % (AUTO) 76 % (42-75); PLATELET COUNT 256 x10^3/uL (130-400); RED BLOOD COUNT 3.44 x10^6/uL (3.82-5.3); RED CELL DISTRIBUTION WIDTH 15.1 % (9.6-15.2)
[2020-09-22 01:25] LABS: MD NO
[2020-09-22 04:00] VITALS: BP 121/86
[2020-09-22] MEDS: OXYcodone IR 5MG TABLET PO PRN ×4 (04:43→22:37)
[2020-09-22] MEDS: IBUPROFEN 800 MG TABLET PO PRN ×3 (04:43→22:37)
[2020-09-22 07:50] VITALS: BP 127/86
[2020-09-22] MEDS: FERROUS GLUCONATE 324 MG TABLET PO SCH ×2 (08:18→17:19)
[2020-09-22] MEDS: LEVETIRACETAM 500 MG TABLET PO SCH ×2 (08:19→22:38)
[2020-09-22] MEDS: PRENATAL VIT/IRON/FA 1 EACH TABLET PO SCH (08:19)
[2020-09-22] MEDS: DOCUSATE 100 MG CAPSULE PO PRN (22:37)
[2020-09-22 23:20] VITALS: BP 124/79
[2020-09-23] MEDS: IBUPROFEN 800 MG TABLET PO PRN ×2 (06:21→13:52)
[2020-09-23] MEDS: OXYcodone IR 5MG TABLET PO PRN ×2 (06:21→13:53)
[2020-09-23 07:35] VITALS: BP 125/87
[2020-09-23] MEDS: DOCUSATE 100 MG CAPSULE PO PRN (08:36)
[2020-09-23] MEDS: PRENATAL VIT/IRON/FA 1 EACH TABLET PO SCH (08:36)
[2020-09-23] MEDS: FERROUS GLUCONATE 324 MG TABLET PO SCH (08:36)
[2020-09-23] MEDS: LEVETIRACETAM 500 MG TABLET PO SCH (08:37)
[2020-09-23] MEDS ORDERED: IBUP-1223 PO (16:03)
== END 2020-09-23 17:40 | disposition home or self-care (01) | DRG 806 ==
LOC: LDOP 12:09 → LDIP 14:00 → OBSVTOIN 14:00 → LDIP 17:51 → 2NW 09-21 14:39
PROVIDERS: ADMIT Obstetrics & Gynecology; ATTEND Obstetrics & Gynecology
PROC: 10E0XZZ Delivery of Products of Conception, External Approach (ICD-10-PCS; principal; 2020-09-21)
PROC: 3E033VJ Introduction of Other Hormone into Peripheral Vein, Percutaneous Approach (ICD-10-PCS; 2020-09-21)
PROC: 10H07YZ Insertion of Other Device into Products of Conception, Via Natural or Artificial Opening (ICD-10-PCS; 2020-09-21)
PROC: 3E0R3BZ Introduction of Anesthetic Agent into Spinal Canal, Percutaneous Approach (ICD-10-PCS; 2020-09-21)
PROC: 00HU33Z Insertion of Infusion Device into Spinal Canal, Percutaneous Approach (ICD-10-PCS; 2020-09-21)
DX: O14.14 Severe pre-eclampsia complicating childbirth (principal); O99.354 Diseases of the nervous system complicating childbirth; Z37.0 Single live birth; Z20.828 Contact with and (suspected) exposure to other viral communicable diseases; O13.4 Gestational [pregnancy-induced] hypertension without significant proteinuria, complicating childbirth; G40.909 Epilepsy, unspecified, not intractable, without status epilepticus; I95.9 Hypotension, unspecified; Z3A.35 35 weeks gestation of pregnancy; Z87.410 Personal history of cervical dysplasia; Z88.6 Allergy status to analgesic agent; Z88.8 Allergy status to other drugs, medicaments and biological substances; Z88.0 Allergy status to penicillin; Z88.2 Allergy status to sulfonamides; O60.14X0 Preterm labor third trimester with preterm delivery third trimester, not applicable or unspecified
CPT/HCPCS: 36415; 80053; 80307; 81003; 82248; 82570; 83735; 84156; 84550; 85025; 86850; 86900; 87635; G0378; J1885; J3370; J2590; J3010; J3475; J7120